=== PATIENT | female | born 1990 | race Caucasian/White ===

== ENCOUNTER → 2018-10-12 | Outpatient (CLI) | payer BC ==
--- NOTE | 2018-10-12 16:32 | Diagnostic Imaging Report ---
PROCEDURE: MRI lumbar spine. TECHNIQUE: Multiplanar, multisequence MRI of the lumbar spine was performed without contrast. INDICATION: Right lower extremity radiculopathy. COMPARISON: None. FINDINGS: There are five lumbar-type vertebral bodies for the purposes of this report. Normal alignment. Vertebral body heights are preserved. Modic type I degenerative endplate changes at L4-L5. Bone marrow signal is otherwise unremarkable. No abnormal signal in the conus which terminates at L2. Normal morphology of the cauda equina. 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 The visualized abdominal and pelvic contents are unremarkable. L1-L2: Normal. L2-L3: Normal. L3-L4: Normal. L4-L5: A large central disc extrusion combines with ligamentous hypertrophy to result in severe spinal canal stenosis. Disc space height loss and facet arthropathy also result in severe bilateral neural foraminal narrowing. L5-S1: A smaller central disc protrusion results in mild spinal canal and bilateral lateral recess narrowing. Disc space height loss and facet arthropathy result in moderate bilateral neural foraminal narrowing. IMPRESSION: 1. Large central disc extrusion at L4-L5 results in severe spinal canal stenosis. No other high-grade spinal canal stenosis in the lumbar spine. 2. Ipbrdioc-vn-fidhku bilateral neural foraminal narrowing at L4-L5 and L5-S1. 3. No acute osseous findings. Dictated by: Dictated on workstation # [id number]
== END ==
LOC: RAD 15:22
PROVIDERS: ATTEND Family Medicine
DX: M51.16 Intervertebral disc disorders with radiculopathy, lumbar region (principal); M48.061 Spinal stenosis, lumbar region without neurogenic claudication
CPT/HCPCS: 72148

== ENCOUNTER 2019-07-22 15:58 | Emergency (ER) | payer BC ==
[~2019-07-22] VITALS: Ht 168 cm; Wt 104.6 kg
[2019-07-22 16:37] LABS: BACTERIA,URINE FEW /HPF; BILIRUBIN,URINE NEGATIVE (NEGATIVE); CLARITY,URINE CLEAR; COLOR,URINE YELLOW; GLUCOSE, URINE (UA) NEGATIVE (NEGATIVE); KETONES,URINE NEGATIVE (NEGATIVE); LEUKOCYTE ESTERASE ,URINE NEGATIVE (NEGATIVE); NITRITE,URINE NEGATIVE (NEGATIVE); PH,URINE 6.5 (5-9); PROTEIN,URINE NEGATIVE (NEGATIVE)
--- NOTE | 2019-07-22 17:15 | ED GU-Female ---
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 Pt has not seen an OB provider since 07/07/19 (Buck) and no intercourse x 1 week. Pt is switching to Dr Clarke 08/03/19. Nursing Sepsis Screen: No Definite Risk Source: patient Exam Limitations: no limitations History of Present Illness Date Seen by Provider: Jul 22, 2019 Time Seen by Provider: 17:12 Initial Comments The patient is a 29-year-old white female. She presents with complaints of vaginal bleeding. She is 21 weeks . She reports that she had had some slight bleeding and mucus with intercourse beginning at about week 10. She has not had intercourse this week but has had evidence of bleeding at in a minimum level each day. There has been no pain in the belly. She reports this is being scant blood with mucus. Today she has had what looks like coffee grounds presenting but again no pain. She is 4 para 1 aborta 2. Severity/Quality: mild Allergies and Home Medications Allergies Coded Allergies: No Known Drug Allergies (Unverified , 07/22/19) Patient Home Medication List Home Medication List Reviewed: Yes Review of Systems Review of Systems Constitutional: see HPI EENTM: no symptoms reported Respiratory: no symptoms reported Cardiovascular: no symptoms reported Gastrointestinal: no symptoms reported Genitourinary: no symptoms reported Expected Date of Delivery: Dec 01, 2019 Musculoskeletal: no symptoms reported Skin: no symptoms reported Psychiatric/Neurological: No Symptoms Reported Endocrine: No Symptoms Reported Hematologic/Lymphatic: No Symptoms Reported Past Ursvnyf-Yxbwrs-Zzrlqa Hx Patient Social History Recent Foreign Travel: No Contact w/Someone Who Travel: No Recent Infectious Disease Expo: No Past Medical History : Yes Expected Date of Delivery: Dec 01, 2019 Last Menstrual Period: Feb 24, 2019 Hx : 4 Hx Para: 1 Hx Total # of Abortions (Sp): 2 Physical Exam Vital Signs Vital Signs - First Documented 07/22/19 16:00 Temp 36.5 Pulse 85 Resp 18 B/P (MAP) 135/67 (89) Pulse Ox 98 O2 Delivery Room Air Capillary Refill : Less Than 3 Seconds Height, Weight, BMI Height: '" Weight: lbs. oz. kg; 37.00 BMI Method: General Appearance: WD/WN, no apparent distress Cardiovascular: normal peripheral pulses, regular rate, rhythm, no edema, no gallop, no JVD, no murmur Respiratory: chest non-tender, lungs clear, normal breath sounds, no respiratory distress, no accessory muscle use, respiratory distress Abdomen is full and palpable with the dome of the uterus at approximately the umbilicus when supine. Speculum exam was performed. The cervix was not dilated. There were several BB sized black materials which appeared somewhat rubbery. Swabs were taken for culture. Progress/Results/Core Measures Suspected Sepsis Recent Fever Within 48 Hours: No Infection Criteria Present: None New/Unexplained Altered Menta: No Sepsis Screen: No Definite Risk SIRS Temperature: Pulse: 85 Respiratory Rate: 18 Blood Pressure 135 /67 Mean: 89 Results/Orders Lab Results Laboratory Tests Test 07/22/19 16:00 Range/Units Urine Color YELLOW Urine Clarity CLEAR Urine pH 6.5 5-9 Urine Specific [place] 1.020 1.016-1.022 Urine Protein NEGATIVE NEGATIVE Urine Glucose (UA) NEGATIVE NEGATIVE Urine Ketones NEGATIVE NEGATIVE Urine Nitrite NEGATIVE NEGATIVE Urine Bilirubin NEGATIVE NEGATIVE Urine Urobilinogen 0.2 < = 1.0 MG/DL Urine Leukocyte Esterase NEGATIVE NEGATIVE Urine RBC (Auto) 1+ H NEGATIVE Urine RBC 2-5 H /HPF Urine WBC NONE /HPF Urine Squamous Epithelial Cells 5-10 /HPF Urine Crystals NONE /LPF Urine Bacteria FEW H /HPF Urine Casts NONE /LPF Urine Mucus NEGATIVE /LPF Urine Culture Indicated NO My Orders Orders - PRINCE HINDS MD Ua Culture If Indicated (07/22/19 16:24) Heart Tones (07/22/19 16:24) Vital Signs/I&O 07/22/19 16:00 Temp 36.5 Pulse 85 Resp 18 B/P (MAP) 135/67 (89) Pulse Ox 98 O2 Delivery Room Air Capillary Refill : Less Than 3 Seconds Blood Pressure Mean: 89 POS Departure Impression Primary Impression: 21 week Additional Impression: vaginal spotting Disposition: 01 HOME, SELF-CARE Condition: Stable/Unchanged Departure-Patient Inst. Decision time for Depature: 17:29 Referrals: NO,LOCAL PHYSICIAN (PCP) Primary Care Physician Add. Discharge Instructions: All discharge instructions reviewed with patient and/or family. Voiced understanding. Get off your feet and rest as much as possible. No intercourse at present. If the volume increases or pain develops go to the [facility] emergency room. They have services which would be needed which is to say ultrasound and OB specialty consultation. PRINCE HINDS MD Jul 22, 2019 17:15 POS
[2019-07-22 17:35] VITALS: BP 131/64
--- OUTSIDE RECORDS SUMMARY | 2019-08-18 00:58 | XMS REPORT ---
Author Author Ramya TREVINO [facility] Address [address] [place] [address] Care Team Providers Care Lead Principal Technical Architect Name Role Phone MAIRA TREVINO Unavailable PROBLEMS Type Condition ICD9-CM Code [id number] Code Onset Dates Condition S tatus SNOMED Code Problem Decreased appetite R63.0 Active 6 [id number] Problem Acute right-sided low back pain with right-sided sciatica M54.41 Active [id number] ALLERGIES No Information ENCOUNTERS Encounter Location Date Diagnosis [address] [address] Mar, [address] [address] Mar, Encounter for test, result unk nown Z32.[address] [address] Oct, [facility] [address] [facility] [id number] [place] [address] Oct, [address] [address] Oct, [address] [address] Sep, [address] [address] Sep, [address] [address] Sep, Radicular pain of right lower extremity M54.10 and Acute right-sided low back pain with right-sided sciatica M54.41 [facility] [address] [place] [address] Sep, Acute right-sided low back pain with rig ht-sided sciatica M54.41 [facility] [address] [place] [address] Aug, [facility] [address] [place] [address] Aug, Generalized abdominal pain R10.84 ; Decreased appetite R63.0 ; History of food poisoning Z91.89 ; Mucous in stools R19.5 ; Diarrhea of presumed infectious origin R19.7 and Blood in stool K92.1 IMMUNIZATIONS No Known Immunizations SOCIAL HISTORY Never Assessed REASON FOR VISIT Requests return call PLAN OF CARE VITAL SIGNS MEDICATIONS Unknown Medications RESULTS No Results PROCEDURES No Known procedures INSTRUCTIONS MEDICATIONS ADMINISTERED No Known Medications MEDICAL (GENERAL) HISTORY Type Description Date Medical History PCOS Surgical History section 2012
--- OUTSIDE RECORDS SUMMARY | 2019-08-18 00:58 | XMS REPORT | Continuity of Care Document ---
Author Organization Unknown Address Unknown Phone Unavailable Allergies Active Description Code Type Severity Reaction Onset Reported/Identified Relationship to Patient Clinical Status Yes No Known Drug Allergies [id number] Drug Allergy Unknown N/A 07/22/2019 Medications There is no data. Problems Date Dx Coded Attending Type Code Diagnosis Diagnosed By 10/13/2018 SELF MAIRA CAMPBELL Ot M48.06 1 SPINAL STENOSIS, LUMBAR REGION WITHOUT N 10/13/2018 SELF MAIRA CAMPBELL Ot M51.16 INTERVERTEBRAL DISC DISORDERS W RADICULO 11/17/2018 SELF MAIRA CAMPBELL Ot M48.06 1 SPINAL STENOSIS, LUMBAR REGION WITHOUT N 11/17/2018 SELF MAIRA CAMPBELL Ot M51.16 INTERVERTEBRAL DISC DISORDERS W RADICULO 07/22/2019 SELF MAIRA CAMPBELL Ot M48.06 1 SPINAL STENOSIS, LUMBAR REGION WITHOUT N 07/22/2019 SELF MAIRA CAMPBELL Ot M51.16 INTERVERTEBRAL DISC DISORDERS W RADICULO Procedures There is no data. Results Test Result Range Complete urinalysis with reflex to cultu re - 07/22/19 16:00 Urine color determination YELLOW NRG Urine clarity determination CLEAR NR G Urine pH measurement by test strip 6.5 5-9 Specific gravity of urine by test strip 1.020 1.016-1.022 Urine protein assay by test strip, semi-quantitative NEGATIVE NEGATIVE Urine glucose detection by automated test strip NE GATIVE NEGATIVE Erythrocytes detection in urine sediment by light micr oscopy 1+ NEGATIVE Urine ketones detection by automated test strip NE GATIVE NEGATIVE Urine nitrite detection by test strip NEGATIVE NEGATIVE Urine total bilirubin detection by test strip NEGA TIVE NEGATIVE Urine urobilinogen measurement by automated test strip (mass/volume) 0.2 mg/dL < = 1.0 Urine leukocyte esterase detection by dipstick NEG ATIVE NEGATIVE Automated urine sediment erythrocyte cou nt by microscopy (number/high power field) [HPF] NRG Automated urine sediment leukocyte count by microscopy (number/high power field) NONE NRG Bacteria detection in urine sediment by light microsco py FEW NRG Squamous epithelial cells detection in u rine sediment by light microscopy 5-10 NRG Crystals detection in urine sediment by light microsco py NONE NRG Casts detection in urine sediment by light microscopy NONE NRG Mucus detection in urine sediment by light microscopy NEGATIVE NRG Complete urinalysis with reflex to culture NO NRG Bacteria identification in genital speci men by aerobe culture - 07/22/19 17:15 QUANTITY OF GROWTH . NRG Bacteria identification in genital specimen by aerobe culture UVF NRG Chlamydia trachomatis DNA detection by p robe and signal amplification method - 07/22/19 17:15 Chlamydia trachomatis DNA detection by p robe and target amplification method Not Detected Not Detected Neisseria gonorrhoeae DNA detection by p robe and signal amplification method - 07/22/19 17:15 Gonorrhea amp DNA-urine Not Detected No t Detected Encounters ACCT No. Visit Date/Time Discharge Status Pt. Type Provider Facility Loc./Unit Complaint [id number] 07/22/2019 16:01:00 019 17:35:00 DIS Emergency PRINCE HINDS MD [facility] ER FS 21 WEEKS PREG, BLEEDING SPOTTING [id number] 10/12/2018 15:22:00 019 23:59:59 CLS Outpatient SELF MAIRA CAMPBELL [facility] RAD RADICULAR PAIN OF RLE
== END 2019-07-22 17:35 | disposition home or self-care (01) ==
LOC: EDUNIT# 15:58 → ER FS 16:01
DX: O26.852 Spotting complicating pregnancy, second trimester (principal); Z3A.21 21 weeks gestation of pregnancy
CPT/HCPCS: 36415; 81000; 87070; 87205; 87491; 87591

== ENCOUNTER 2019-10-14 18:04 | Outpatient (CLI) | payer BC ==
[~2019-10-14] VITALS: Ht 168 cm; Wt 112.4 kg
--- NOTE | 2019-10-14 17:58 | NUR ---
ASTER BENZ presented to unit ambulatory from home, with c/o decreased movement since noon today. ASTER BENZ weighed, gowned, voided, and to bed. EFHM and TOCO applied, VS taken. ASTER BENZ oriented to bed controls, call light, TV, heat, and A/C controls.
[2019-10-14 18:45] VITALS: BP 133/78
--- NOTE | 2019-10-14 18:49 | NUR ---
dr montgomery called and status reviewed. ok to discharge to home and keep scheduled appointment with dr mercado
--- NOTE | 2019-10-14 19:00 | NUR ---
home instructions reviewed with pt. consent to treat signed and sent to registration. pt preparing for discharge to home
--- NOTE | 2019-10-14 19:03 | NUR ---
pt discharged to home ambulatory from room 315. follow up as scheduled with dr mercado
--- NOTE | 2019-10-17 08:08 | Physician Query-Final Dx ---
Clinic Account Progress/Dx Physician Query: Please give diagnosis Please include # weeks gestation Date of Service Oct 14, 2019 at 18:04 JULIANNE BLACKBURN Oct 17, 2019 08:08
== END 2019-10-14 19:03 | disposition home or self-care (01) ==
LOC: WSo 18:04 → LDRP 18:05 → WSo 19:03
PROVIDERS: ATTEND Obstetrics & Gynecology
DX: O36.8130 Decreased fetal movements, third trimester, not applicable or unspecified (principal); Z3A.33 33 weeks gestation of pregnancy
CPT/HCPCS: 59025

== ENCOUNTER → 2020-06-25 | Outpatient (CLI) | payer BC ==
--- NOTE | 2020-06-25 17:05 | Diagnostic Imaging Report ---
INDICATION: Upper back pain and upper extremity paresthesia. AP, lateral and swimmer's views of the thoracic spine are obtained. Thoracic alignment is unremarkable. There is slight leftward curvature of the thoracic spine. Vertebral body heights and disc spaces are maintained with minimal marginal spurring. IMPRESSION: Slight left convexity curvature of the thoracic spine which could be due to muscle spasm or positioning. Otherwise, there is no acute abnormality detected. Dictated on workstation # [id number]
== END ==
LOC: RAD FS 16:38
PROVIDERS: ATTEND Family Medicine
DX: M43.8X4 Other specified deforming dorsopathies, thoracic region (principal); M25.50 Pain in unspecified joint
CPT/HCPCS: 72072